=== PATIENT | female | born 1970 | race Caucasian/White ===

== ENCOUNTER 2020-03-19 08:03 | Day surgery (SDC) | payer OTHER ==
[2020-03-19] MEDS ORDERED: Sodium Chloride 0.9% 1,000 ML IV SCH (08:15)
[2020-03-19] MEDS ORDERED: fentaNYL 100 MCG/2 ML SDV ONE (09:03)
[2020-03-19] MEDS ORDERED: Propofol 200 MG/20 ML SDV ONE ×2 (09:03→09:27)
[2020-03-19] MEDS ORDERED: Midazolam 1 MG/ML 2 ML SDV ONE (09:03)
--- NOTE | 2020-03-22 07:44 | OR ---
DATE OF PROCEDURE: 03/19/2020 SURGEON: Taj Schneider MD PROCEDURE: Colonoscopy. FINDINGS: Sigmoid colon polyp, approximately 8 mm, completely removed using hot snare wire device. COMPLICATIONS: None. TITLE SEARCHER: None. ANESTHESIA: MAC. PREOPERATIVE DIAGNOSIS: Screening colonoscopy. POSTOPERATIVE DIAGNOSIS: Screening colonoscopy. RISKS: Risks, benefits, alternatives, and limitations including, but not limited to infection, bleeding, perforation, false positives and false negatives were explained to the patient, who wished to proceed. PROCEDURE IN DETAIL: The patient was placed in the left lateral decubitus position. Digital rectal exam was performed without abnormality. Scope was introduced and advanced atraumatically to the ileocecal valve. A photo was taken. The scope was brought back from the ascending, transverse, descending colon and retroflexed. The aforementioned polyp was identified and completely removed. No colitis. No old or new blood. No masses. No other polyps. No diverticulosis. No abnormalities on retroflexion. Prep was acceptable, approximately 95% luminal surface could be seen. No abnormalities and retroflexed. Greater than 8 minutes was spent removing the scope. The patient tolerated the procedure well. Taj Schneider MD /[id number]
== END 2020-03-19 10:45 | disposition home or self-care (01) ==
LOC: JP.SDS 08:03
PROVIDERS: ATTEND Surgery
DX: Z12.11 Encounter for screening for malignant neoplasm of colon (principal); D12.5 Benign neoplasm of sigmoid colon; I10 Essential (primary) hypertension; E66.9 Obesity, unspecified; Z79.899 Other long term (current) drug therapy; Z68.36 Body mass index [BMI] 36.0-36.9, adult
CPT/HCPCS: 45385; J2250; J2704; J3010; J7030; 88305

== ENCOUNTER 2020-07-15 05:14 | Inpatient (IN) | payer OTHER ==
[2020-07-15] MEDS ORDERED: Celecoxib 200 MG Cap PO ONE (06:00)
[2020-07-15] MEDS ORDERED: Acetaminophen 500 MG Tab PO ONE (06:00)
[2020-07-15] MEDS ORDERED: Scopolamine 1.5 MG Transdermal Patch TOP ONE (06:00)
[2020-07-15] MEDS ORDERED: Dextrose 5%-Lactated Ringers 1,000 ML IV SCH (06:30)
[2020-07-15] MEDS ORDERED: cefOXitin 2 GM Vial ONE (06:43)
[2020-07-15] MEDS ORDERED: Rocuronium 50 MG/5 ML Vial ONE (07:00)
[2020-07-15] MEDS ORDERED: Propofol 200 MG/20 ML SDV ONE (07:00)
[2020-07-15] MEDS ORDERED: Ondansetron 4 MG/2 ML SDV ONE (07:00)
[2020-07-15] MEDS ORDERED: Neostigmine Methylsulfate 1 MG/ML 5 ML Syringe ONE (07:00)
[2020-07-15] MEDS ORDERED: Dexamethasone 4 MG/ML SDV ONE (07:00)
[2020-07-15] MEDS ORDERED: cefOXitin 2 GM in Sodium Chloride 0.9% 50 ML IV ONE (07:00)
[2020-07-15] MEDS ORDERED: Glycopyrrolate 0.2 MG/ML 5 ML MDV ONE (07:00)
[2020-07-15] MEDS ORDERED: fentaNYL 250 MCG/5 ML SDV ONE ×2 (07:00→07:30)
[2020-07-15] MEDS ORDERED: Succinylcholine 200 MG/10 ML MDV ONE (07:00)
[2020-07-15] MEDS ORDERED: Ketamine 50 MG in Sodium Chloride 0.9% 49.5 ML IV SCH (07:30)
[2020-07-15] MEDS ORDERED: Magnesium Sulfate 3 GM in Sodium Chloride 0.9% 100 ML IV SCH (07:30)
[2020-07-15] MEDS ORDERED: Ketamine 500 MG/5 ML MDV IV SCH (07:30)
[2020-07-15] MEDS ORDERED: Lactated Ringers 1,000 ML ONE (07:37)
[2020-07-15] MEDS ORDERED: Magnesium Sulfate 3.2 GM in Sodium Chloride 0.9% 250 ML IV ONE (08:00)
[2020-07-15] MEDS ORDERED: fentaNYL 100 MCG/2 ML SDV IVPUSH ONE (09:00)
[2020-07-15] MEDS ORDERED: hydrOXYzine HCL 100 MG/2 ML SDV IM ONE (09:00)
[2020-07-15] MEDS: HYDROmorphone 0.5 MG/0.5 ML Syringe IVPUSH PRN ×2 (10:16→17:26)
[2020-07-15] MEDS ORDERED: HYDROmorphone 1 MG/ML Syringe IV PRN (11:00)
[2020-07-15] MEDS ORDERED: Metoclopramide 10 MG/2 ML SDV IVPUSH PRN (11:00)
[2020-07-15] MEDS ORDERED: diphenhydrAMINE 50 MG/ML SDV IVPUSH PRN (11:00)
[2020-07-15] MEDS ORDERED: Ondansetron 4 MG/2 ML SDV IVPUSH PRN (11:00)
[2020-07-15] MEDS ORDERED: Acetaminophen 500 MG Tab PO PRN (11:00)
[2020-07-15] MEDS ORDERED: hydrOXYzine HCL 100 MG/2 ML SDV IM PRN (11:00)
[2020-07-15] MEDS ORDERED: Labetalol 20 MG/4 ML Syringe IVPUSH PRN (11:00)
[2020-07-15] MEDS ORDERED: Calcium Gluconate 10% 1 GM/10 ML SDV IVPUSH PRN (11:00)
[2020-07-15] MEDS ORDERED: traMADol 50 MG Tab PO PRN (11:00)
[2020-07-15] MEDS: cefOXitin 2 GM in Sodium Chloride 0.9% 50 ML IV SCH ×3 (12:10→23:30)
[2020-07-15] MEDS: oxyCODONE 5 MG Tab PO PRN ×2 (12:10→19:15)
[2020-07-15] MEDS ORDERED: Pantoprazole 40 MG Vial IVPUSH SCH (14:00)
[2020-07-15] MEDS: Acetaminophen 500 MG Tab PO SCH ×2 (15:27→21:51)
[2020-07-15] MEDS ORDERED: MVI, Adult with Vitamin K 10 ML, Thiamine 200 MG, Zinc/Copper/Manganese/Selenium 1 ML i... IV SCH ×4 (16:00)
[2020-07-15] MEDS: Heparin Sodium 5,000 Units/ML Vial SUBCUT SCH (17:26)
[2020-07-15] MEDS: Dextrose 5%-Lactated Ringers 1,000 ML IV SCH (21:48)
[2020-07-16] MEDS ORDERED: Iopamidol 612 MG/ML 50 ML SDV PO STA (01:14)
[2020-07-16] MEDS: Dextrose 5%-Lactated Ringers 1,000 ML IV SCH (05:41)
[2020-07-16] MEDS: cefOXitin 2 GM in Sodium Chloride 0.9% 50 ML IV SCH ×2 (05:45→12:55)
[2020-07-16] MEDS: Heparin Sodium 5,000 Units/ML Vial SUBCUT SCH ×2 (05:46→17:58)
[2020-07-16] MEDS: Acetaminophen 500 MG Tab PO SCH ×3 (05:46→21:52)
[2020-07-16] MEDS ORDERED: Ondansetron 4 MG Tab.DIS PO PRN (07:37)
[2020-07-16] MEDS ORDERED: Dextrose 5%-Lactated Ringers 1,000 ML IV SCH (07:45)
--- NOTE | 2020-07-16 09:03 | CR ---
UGI Limited HISTORY: Postbariatric surgery FINDINGS: Patient swallowed water-soluble contrast. Upright views of the abdomen show no evidence of extravasation or obstruction. There is a surgical drain in the left upper quadrant. IMPRESSION: Status post bariatric surgery No extravasation or obstruction seen
[2020-07-16] MEDS: oxyCODONE 5 MG Tab PO PRN ×2 (09:34→17:57)
--- NOTE | 2020-07-16 09:35 | PN ---
DATE OF SERVICE: 07/16/2020 SUBJECTIVE: Haley is postoperative day #1. Upper GI was normal. Vital signs have been stable. Up ambulating using her incentive spirometer. Oral intake 790, urine output 3300. DEDE drain put out 80 mL of a serosanguineous drainage. REVIEW OF SYSTEMS: Remainder of review of systems negative for any pertinent positives and negatives. OBJECTIVE: GENERAL: Haley Menard is a pleasant 49-year-old female. She is alert and orientated. VITAL SIGNS: Height is 5 feet 6 inches, weight is 248 pounds. BMI is 40. TPR is 97.1, 72, 16. Blood pressure 141/85. HEENT: Negative. NECK: Supple. HEART: Regular rate and rhythm. LUNGS: Clear. ABDOMEN: Dressings dry and intact. Abdominal binder is on. DEDE as above. EXTREMITIES: Without peripheral edema. ASSESSMENT: Laparoscopic Jian-en-Y gastric bypass surgery, liver biopsy, repair of diaphragmatic hernia, and excision of mediastinal lipoma. Date of procedure: 07/15/2020. Surgeon: Mani Crowell MD. POSTOPERATIVE DIAGNOSES: Morbid obesity, hepatomegaly, diaphragmatic hernia, and mediastinal lipoma. PLAN: 1. Decrease IV to 100 mL per hour. 2. Step 2 gastric bypass diet with no cereal. 3. Dressing off, may shower. 4. Zofran ODT 4 mg q.4 hours p.r.n. nausea. 5. Atarax 25 mg q.4 hours p.r.n. pain. 6. Communication order, 3 med cups per hour, 1 every 20 minutes, record at bedside. 7. Continue use of incentive spirometer and ambulation. 8. We will evaluate p.r.n. or in a.m. Kelly Mendez PA-C /[id number]
[2020-07-16] MEDS: Escitalopram 10 MG Tab PO SCH (09:37)
[2020-07-16] MEDS: Celecoxib 200 MG Cap PO SCH ×2 (09:37→21:51)
[2020-07-16] MEDS: Lisinopril 20 MG Tab PO SCH (09:37)
[2020-07-16] MEDS: SCOPOLAMINE PATCH CHECK TOP SCH (09:38)
[2020-07-16] MEDS: Cyclobenzaprine 10 MG Tab PO PRN ×2 (12:55→21:51)
[2020-07-16] MEDS: hydrOXYzine HCl 25 MG Tab PO PRN ×2 (12:55→17:57)
[2020-07-16] MEDS: Pantoprazole 40 MG Delayed-Release Granules 1 Packet PO SCH ×2 (12:58→13:00)
[2020-07-16] MEDS ORDERED: MVI, Adult with Vitamin K 10 ML, Thiamine 200 MG, Zinc/Copper/Manganese/Selenium 1 ML i... IV SCH ×4 (16:00)
[2020-07-17] MEDS: oxyCODONE 5 MG Tab PO PRN (05:51)
[2020-07-17] MEDS: Acetaminophen 500 MG Tab PO SCH (05:52)
[2020-07-17] MEDS: Heparin Sodium 5,000 Units/ML Vial SUBCUT SCH (05:53)
[2020-07-17] MEDS: Cyclobenzaprine 10 MG Tab PO PRN (08:19)
[2020-07-17] MEDS: Escitalopram 10 MG Tab PO SCH (08:19)
[2020-07-17] MEDS: hydrOXYzine HCl 25 MG Tab PO PRN (08:19)
[2020-07-17] MEDS: Lisinopril 20 MG Tab PO SCH (08:20)
[2020-07-17] MEDS: Celecoxib 200 MG Cap PO SCH (08:20)
[2020-07-17] MEDS ORDERED: Cyanocobalamin (Vitamin B12) 1,000 MCG/ML SDV IM ONE (09:00)
[2020-07-17] MEDS ORDERED: Magnesium Hydroxide 400 MG/5 ML Susp 30 ML Cup PO ONE (10:00)
[2020-07-17] MEDS: SCOPOLAMINE PATCH CHECK TOP SCH (10:41)
--- NOTE | 2020-07-20 22:27 | DISCH ---
FINAL DIAGNOSES: 1. Morbid obesity. 2. Marked hepatomegaly. 3. Paraesophageal diaphragmatic hernia associated with mediastinal lipoma. 4. History of hypertension. 5. History of depression and anxiety. 6. History of intermittent gastroesophageal reflux disease. OPERATIVE PROCEDURE: This was done on 07/15, diagnostic laparoscopy with: 1. Laparoscopic Jian-en-Y gastric bypass with long limb gastroenterostomy. 2. Marko-Cut needle liver biopsy. 3. Repair of paraesophageal diaphragmatic hernia. 4. Excision of mediastinal lipoma. SUMMARY: This is a 49-year-old female presenting with longstanding morbid obesity and increasingly significant comorbidities. After preoperative evaluation and discussion, she wished to proceed with a gastric bypass procedure. This was done on the date of admission. Postoperatively, no significant problems were noted. The patient is presently on a step-2 diet, which she will stay on until her first appointment, which will be with Kelly Mendez at [facility] on 07/26/2020. Otherwise, she will be continued on her usual medications plus oxycodone 5 mg q.4 hours p.r.n. pain, Atarax 25 mg p.o. q.6 hours p.r.n. pain, and Flexeril 10 mg t.i.d. p.r.n. pain. For each of these medications, #30 were written. Tylenol 1 g q.i.d. p.r.n. for pain. /[id number]
--- NOTE | 2020-07-25 10:46 | OR ---
DATE OF PROCEDURE: 07/15/2020 SURGEON: Mani Crowell MD PREOPERATIVE DIAGNOSIS: Morbid obesity. POSTOPERATIVE DIAGNOSES: 1. Morbid obesity. 2. Marked hepatomegaly. 3. Paraesophageal diaphragmatic hernia. 4. Mediastinal lipoma. OPERATIVE PROCEDURE: 1. Laparoscopic Jian-en-Y gastric bypass along with gastroenterostomy (02533). 2. Marko-Cut needle liver biopsy (56023). 3. Repair of paraesophageal diaphragmatic hernia (63874). 4. Excision of mediastinal lipoma (41658). ANESTHESIA: General. SCENIC ARTIST: Kelly Mendez PA-C INDICATIONS FOR PROCEDURE: A 49-year-old female presenting with longstanding morbid obesity and increasingly significant comorbidities. After preoperative evaluation and discussion, she wished to proceed with a gastric bypass procedure. Potential risks including bleeding, infection, leaks from various GI tract closures, problems with bowel obstruction over time as well as possibility of cardiopulmonary, septic, or hemorrhagic complications leading to were discussed, and the patient wishes to proceed. DETAILS OF PROCEDURE: The patient was taken to the operating room, placed in a supine position. After general endotracheal anesthesia was induced, she was converted to a lithotomy position and the abdomen prepped and draped. At 15 cm inferior and 5 cm left of the xiphoid process, a transverse incision was made and peritoneal cavity entered under direct vision with an Optiview trocar, inflated to 15 mmHg pressure with CO2. Laparoscope was reinserted. No underlying trocar insertion site injuries were seen. Following this, bilateral transversus abdominis plane blocks were placed and 5 additional trocars were placed across the upper and mid abdomen. The patient was noted to have marked hepatomegaly with the liver being grossly fatty infiltrated and moderately enlarged. Marko-Cut needle biopsy was obtained from the left lobe of the liver. Minimal bleeding from the biopsy sites was controlled with electrocautery. The omentum was then divided in the midline up to the level of the transverse colon. This allowed identification of the small bowel to the ligament of Treitz. The small bowel was then traced out 125 cm distal to that point. It was divided transversely with a JOVANNY stapler. The small bowel was then traced out additional 175 cm where the [id number] enteroenterostomy was then accomplished with internal firing of the Endo-JOVANNY 60 mm stapler. Common opening was then closed transversely with the same stapler, angles anastomosed, and mesenteric defect approximated with some 0 Ethibond stitch along with fibrin sealant. The divided end of the Jian limb was then from the mesentery for a few centimeters which allowed an antecolic position of the Jian limb up to the level of the gastroesophageal junction without tension. The liver was then retracted anteriorly. The patient was noted to have a large-sized paraesophageal diaphragmatic hernia. This contained some omentum prolapsing in a plane anterior to the course of the esophagus. The hernia was reduced and the peritoneum overlying it was incised and reflected downward. During the course of the dissection, the mediastinal lipoma was encountered, and to facilitate more adequate closure, this was excised. An anterior crural closure was accomplished with a series of 0 Ethibond sutures reinforced with PTFE pledgets. The gastrointestinal balloon catheter was then inflated to 15 mL and pulled up snugly against the EG junction. Gastric wall over the apex of the balloon was then marked with electrocautery. The balloon catheter was deflated and withdrawn. The lesser omental tissue adjacent to the gastric cardia was then incised allowing dissection behind the stomach at that level. Pouch formation was initiated with a transverse firing of the JOVANNY stapler at the level of the cauterized jonna at the gastric cardia and continued up through the angle of His with additional JOVANNY staple firings. Upon completion of the pouch both staple lines were noted to be intact. The anvil of a 25 mm EEA stapler was attached to a [place] sump-type tube. The latter was brought down through the mouth, taken out through a small opening in the gastric pouch allowing the anvil likewise to be pulled down to within the gastric pouch. The divided end of the Jian limb was then opened. The main body of the EEA stapler was passed several centimeters into the lumen of the small bowel, brought up the anvil, united with it, thus creating the gastrojejunostomy. Upon removal of the stapler, double donuts of mucosa were noted within it. The small bowel was closed off with a vascular staple line. The gastrojejunostomy was reinforced with some 3-0 Vicryl seromuscular stitch along with fibrin sealant. A leak test was accomplished with injection of 120 mL of air in the gastric pouch while it was submerged with cefoxitin-containing saline solution. No leaks were identified. A single Flaco-Lopez drain was taken out through the left lateral trocar site and positioned adjacent to the gastric cardia and from there up into the splenic fossa. The trocars were then removed and the peritoneal cavity deflated. The incisions were closed with 4-0 Vicryl skin stitch which was also used to fix the drain and the patient taken to the recovery room in satisfactory condition. Physician assistant director of financial aid, Kelly Mendez, played an essential role in assisting in this case, helping to position the patient, retract structures as needed as well as suturing and cutting sutures as indicated. Her presence improved patient safety and decreased the operative time. Mani Crowell MD /[id number]
== END 2020-07-17 10:15 | disposition home or self-care (01) | DRG 620 ==
LOC: JP.SDS 05:14 → JP.MS 05:14 → EDSTATUS 08:15 → JP.2SS 09:00
PROVIDERS: ADMIT Surgery; ATTEND Surgery
PROC: 0D164ZA Bypass Stomach to Jejunum, Percutaneous Endoscopic Approach (ICD-10-PCS; principal; 2020-07-15)
PROC: 0FB24ZX Excision of Left Lobe Liver, Percutaneous Endoscopic Approach, Diagnostic (ICD-10-PCS; 2020-07-15)
PROC: 0BQT4ZZ Repair Diaphragm, Percutaneous Endoscopic Approach (ICD-10-PCS; 2020-07-15)
PROC: 0JB63ZZ Excision of Chest Subcutaneous Tissue and Fascia, Percutaneous Approach (ICD-10-PCS; 2020-07-15)
DX: E66.01 Morbid (severe) obesity due to excess calories (principal); F33.0 Major depressive disorder, recurrent, mild; Z68.41 Body mass index [BMI] 40.0-44.9, adult; F41.9 Anxiety disorder, unspecified; I10 Essential (primary) hypertension; Z96.642 Presence of left artificial hip joint; Z98.890 Other specified postprocedural states; Z79.899 Other long term (current) drug therapy; D17.4 Benign lipomatous neoplasm of intrathoracic organs; K44.9 Diaphragmatic hernia without obstruction or gangrene; R16.0 Hepatomegaly, not elsewhere classified
CPT/HCPCS: 36415; 74240; 74240-26; 80053; 83735; 83880; 84100; 84703; 85027; 86850; 86900; 86901; 88304; 88307; 88313; 94762; A9270-GY; C9113; J0171; J0330; J0694; J1100; J1170; J1644; J2405; J2704; J2710; J2795; J3010; J3410; J3411; J3420; J3475; J3490; J7050; J7120; J7121; Q9967

== ENCOUNTER 2021-06-01 09:53 | Emergency (ER) | payer OTHER ==
[2021-06-01] MEDS ORDERED: Ketorolac 30 MG/ML SDV IM ONE (10:34)
== END 2021-06-01 12:23 | disposition home or self-care (01) ==
LOC: JP.ED 09:53
DX: S06.0X0A Concussion without loss of consciousness, initial encounter (principal); I10 Essential (primary) hypertension; K21.9 Gastro-esophageal reflux disease without esophagitis; E66.9 Obesity, unspecified; Z68.28 Body mass index [BMI] 28.0-28.9, adult; Z79.899 Other long term (current) drug therapy; W18.09XA Striking against other object with subsequent fall, initial encounter
CPT/HCPCS: 36415; 70450; 70450-26; 80048; 85025; 93005; 93010; 96372; 99283; 99284-25; J1885